=== PATIENT | male | born 1980 | race Two or more races ===

== ENCOUNTER 2023-02-28 09:23 | Inpatient (IN) | payer MEDICAID ==
[~2023-02-28] VITALS: Ht 162.6 cm; Wt 80.0 kg
[2023-02-28] VITALS (7 sets, daily range): BP systolic 116–120; BP diastolic 68–69; PULSE 80–91; RESP 14–20; TEMP 98–98.5; O2SAT 94–100
[2023-02-28 10:05] LABS: Basophils # (auto) 0 10 ^3/uL (0-0.2); Basophils % (auto) 0.2 % (0.0-2.0); Eosinophils # (auto) 0 10 ^3/uL (0-0.8); Eosinophils % (auto) 0.2 % (0.0-7.0); Hematocrit 44.4 % (41.0-53.0); Hemoglobin 15.2 g/dL (13.5-17.5); Lymphocytes # (auto) 1.8 10 ^3/uL (0.4-5.4); Lymphocytes % (auto) 12.9 % (10.0-50.0); Mean Corpuscular Hemoglobin 30.1 pg (28.0-32.0); Mean Corpuscular Hgb Conc. 34.2 g/dL (32.0-36.0); Mean Corpuscular Volume 87.8 fL (80.0-100.0); Monocytes # (auto) 1.2 10 ^3/uL (0-1.3); Neutrophils # (auto) 10.5 10 ^3/uL (1.6-8.6); Neutrophils % (auto) 77.7 % (37.0-80.0); Red Blood Cells 5.06 10^6/uL (4.5-5.90); Red Cell Distribution Width 13.5 % (11.8-14.3); White Blood Cell 13.6 10^3/uL (4.4-10.8)
[2023-02-28 10:11] LABS: Urine Bacteria NONE SEEN /hpf (None Seen); Urine Blood Negative /uL (Negative); Urine Clarity Clear (Clear); Urine Color Yellow (Yellow); Urine Mucus FEW (None Seen); Urine Protein, UAD TRACE (Negative); Urine Specific Gravity 1.025 (1.001-1.035); Urine Urobilinogen Normal (Negative); Urine WBC 1 /hpf (0 - 3); Urine pH 5.5 (5.0-8.0)
[2023-02-28 10:18] LABS: Alanine Aminotransferase 97 U/L (7-40); Albumin 4.8 g/dL (3.2-4.8); Alkaline Phosphatase 110 U/L (46-116); Anion Gap 6 (5-15); Aspartate Aminotransferase 47 U/L (13-40); BUN/Creatinine Ratio 11.1 (10.0-20.0); Blood Urea Nitrogen 9 mg/dL (9-23); Calcium 9.2 mg/dL (8.7-10.4); Carbon Dioxide 25 mmol/L (20-30); Chloride 104 mmol/L (98-107); Glucose 142 mg/dL (74-106); Lipase 44 U/L (12-53); Sodium 135 mmol/L (136-145)
[2023-02-28 10:19] LABS: Bilirubin, Total 0.7 mg/dL (0.2-1.0); Total Protein 7.5 g/dL (5.7-8.2)
[2023-02-28] MEDS ORDERED: metroNIDAZOLE 500MG/100ML 100 ML IV ONE (10:45)
[2023-02-28] MEDS ORDERED: cefTRIAXone 1GM/50ML D5W 50 ML IV ONE (10:45)
[2023-02-28 11:21] LABS: INR 1.04 (0.9-1.15); Partial Thromboplastin Time 31.4 SEC (24.5-34.5); Prothrombin Time 10.9 sec (9.3-11.8)
[2023-02-28] MEDS ORDERED: HYDROmorphone HCL 2 MG/ML VL/or syr IV PRN ×3 (11:45→14:45)
[2023-02-28] MEDS ORDERED: MORPHINE SULFATE INJ 2 MG/ml SYRG IV PRN (11:45)
[2023-02-28] MEDS ORDERED: METOCLOPRAMIDE HCL 5MG/ml INJ 2ml VIAL IV PRN (11:45)
[2023-02-28] MEDS ORDERED: fentaNYL CITRATE 100 MCG/2 ML VL ONE (11:48)
[2023-02-28] MEDS ORDERED: ONDANSETRON HCL 4 MG/2 ML VIAL ONE (11:49)
[2023-02-28] MEDS ORDERED: SODIUM CHLORIDE LOCK 10 ML ONE (11:49)
[2023-02-28] MEDS ORDERED: DexAMETHasone SOD PHOS 10MG/1ML VIAL INJ ONE (11:49)
[2023-02-28] MEDS ORDERED: MEPERIDINE HCL (50 MG/ML) 1 ML VIAL ONE (11:49)
[2023-02-28] MEDS ORDERED: PROPOFOL 10 MG/ML 20 ML IV ONE (11:49)
[2023-02-28] MEDS ORDERED: ROCURONIUM 10MG/ML 10ML VIAL IV ONE (11:49)
[2023-02-28] MEDS ORDERED: GLYCOPYRROLATE 0.2 MG/ML 1ML VIAL ONE (11:49)
[2023-02-28] MEDS ORDERED: NEOSTIGMINE 1 MG/ML INJ (10mg/10ML VIAL) ONE (11:49)
[2023-02-28] MEDS ORDERED: MIDAZOLAM HCL 2MG/2ML 2ml VIAL (1mg/ml) ONE (11:49)
[2023-02-28] MEDS ORDERED: LIDOCAINE 1% (LOCAL ANESTH.) PF 5ml SDV ONE (11:51)
[2023-02-28] MEDS ORDERED: LIDOCAINE 1% HCL (LOCAL ANESTH.) INJ 20ML MDV ONE (12:24)
[2023-02-28] MEDS ORDERED: LIDOCAINE 2% JELLY 11ml (GLYDO) ONE (12:36)
[2023-02-28] MEDS ORDERED: SUGAMMADEX 200mg/2ml Vial (100MG/ML) IV ONE (13:48)
[2023-02-28] MEDS ORDERED: DEXTROSE (50%) 50ML SYRG IV PRN (14:45)
[2023-02-28] MEDS ORDERED: DOCUSATE SOD 100 MG CAP PO PRN (14:45)
[2023-02-28] MEDS: SODIUM CHLORIDE 0.9% 1,000 ML IV SCH ×2 (16:20→23:05)
[2023-02-28] MEDS: ACCU-CHEK COMFORT CURVE STRIP VI SCH (18:34)
[2023-02-28] MEDS: PIPERACILLIN-TAZOB 3.375GM 100 ML IV SCH (18:34)
[2023-02-28] MEDS: InsuLIN REG 1unit/0.01ml Soln (100units/ml) SC SCH (18:35)
[2023-03-01] VITALS (7 sets, daily range): BP systolic 96–144; BP diastolic 51–85; PULSE 68–81; RESP 16–20; TEMP 97.3–98.6; O2SAT 93–98
[2023-03-01] MEDS: PIPERACILLIN-TAZOB 3.375GM 100 ML IV SCH ×5 (00:13→23:32)
[2023-03-01] MEDS: ACCU-CHEK COMFORT CURVE STRIP VI SCH ×5 (00:15→23:31)
[2023-03-01] MEDS: InsuLIN REG 1unit/0.01ml Soln (100units/ml) SC SCH ×5 (05:33→23:33)
[2023-03-01 06:08] LABS: Alanine Aminotransferase 72 U/L (7-40); Albumin 4.6 g/dL (3.2-4.8); Alkaline Phosphatase 87 U/L (46-116); Anion Gap 8 (5-15); Aspartate Aminotransferase 31 U/L (13-40); BUN/Creatinine Ratio 7.4 (10.0-20.0); Blood Urea Nitrogen 6 mg/dL (9-23); Calcium 9.2 mg/dL (8.5-10.1); Carbon Dioxide 24 mmol/L (20-30); Chloride 106 mmol/L (98-107); Glucose 120 mg/dL (74-106); Potassium 4.4 mmol/L (3.5-5.1); Sodium 138 mmol/L (136-145)
[2023-03-01 06:09] LABS: Total Protein 7.6 g/dL (5.7-8.2)
[2023-03-01 06:10] LABS: Basophils # (auto) 0 10 ^3/uL (0-0.2); Basophils % (auto) 0.3 % (0.0-2.0); Eosinophils # (auto) 0 10 ^3/uL (0-0.8); Hematocrit 44.9 % (41.0-53.0); Hemoglobin 14.9 g/dL (13.5-17.5); Lymphocytes # (auto) 1.2 10 ^3/uL (0.4-5.4); Lymphocytes % (auto) 9.3 % (10.0-50.0); Mean Corpuscular Hemoglobin 29.8 pg (28.0-32.0); Mean Corpuscular Hgb Conc. 33.3 g/dL (32.0-36.0); Mean Corpuscular Volume 89.4 fL (80.0-100.0); Monocytes # (auto) 0.8 10 ^3/uL (0-1.3); Neutrophils % (auto) 84.4 % (37.0-80.0); Nucleated Red Blood Cells % 0.1 %; Red Blood Cells 5.02 10^6/uL (4.5-5.90); Red Cell Distribution Width 13.8 % (11.8-14.3); White Blood Cell 13.1 10^3/uL (4.4-10.8)
[2023-03-01] MEDS: SODIUM CHLORIDE 0.9% 1,000 ML IV SCH ×2 (07:25→16:34)
[2023-03-01] MEDS: ONDANSETRON HCL 4 MG/2 ML VIAL IV PRN (15:41)
[2023-03-01] MEDS: MORPHINE SULFATE INJ 2 MG/ml SYRG IV PRN (15:42)
[2023-03-02] MEDS: SODIUM CHLORIDE 0.9% 1,000 ML IV SCH ×4 (00:07→23:46)
[2023-03-02 05:00] VITALS: BP 122/78; PULSE 57; RESP 16; TEMP 97.5; O2SAT 97
[2023-03-02] MEDS: InsuLIN REG 1unit/0.01ml Soln (100units/ml) SC SCH ×4 (05:30→23:21)
[2023-03-02] MEDS: ACCU-CHEK COMFORT CURVE STRIP VI SCH ×4 (05:30→23:21)
[2023-03-02] MEDS: PIPERACILLIN-TAZOB 3.375GM 100 ML IV SCH ×4 (05:31→23:21)
[2023-03-02 08:00] VITALS: BP 130/76; PULSE 63; RESP 16; TEMP 98.4; O2SAT 98
[2023-03-02] MEDS: ONDANSETRON HCL 4 MG/2 ML VIAL IV PRN (09:15)
[2023-03-02] MEDS: MORPHINE SULFATE INJ 2 MG/ml SYRG IV PRN (09:16)
[2023-03-02 13:00] VITALS: BP 121/71; PULSE 65; RESP 20; TEMP 98.5; O2SAT 97
[2023-03-02 15:56] LABS: Basophils # (auto) 0 10 ^3/uL (0-0.2); Basophils % (auto) 0.2 % (0.0-2.0); Eosinophils # (auto) 0 10 ^3/uL (0-0.8); Eosinophils % (auto) 0.2 % (0.0-7.0); Hematocrit 46.5 % (41.0-53.0); Hemoglobin 15.7 g/dL (13.5-17.5); Lymphocytes # (auto) 1.8 10 ^3/uL (0.4-5.4); Lymphocytes % (auto) 16.1 % (10.0-50.0); Mean Corpuscular Hemoglobin 30.1 pg (28.0-32.0); Mean Corpuscular Hgb Conc. 33.8 g/dL (32.0-36.0); Monocytes # (auto) 0.7 10 ^3/uL (0-1.3); Monocytes % (auto) 6.6 % (0.0-12.0); Neutrophils # (auto) 8.4 10 ^3/uL (1.6-8.6); Neutrophils % (auto) 76.9 % (37.0-80.0); Nucleated Red Blood Cells % 0.1 %; Red Blood Cells 5.22 10^6/uL (4.5-5.90); Red Cell Distribution Width 13.6 % (11.8-14.3); White Blood Cell 10.9 10^3/uL (4.4-10.8)
[2023-03-02 17:00] VITALS: BP 127/85; PULSE 41; RESP 20; TEMP 98.3; O2SAT 93
[2023-03-02] MEDS ORDERED: HYDROcodone-ACET 5/325MG TAB PO PRN (19:15)
[2023-03-02 19:30] VITALS: O2SAT 98
[2023-03-02 22:00] VITALS: BP 124/86; PULSE 86; RESP 16; TEMP 98.1; O2SAT 95
[2023-03-03 05:00] VITALS: BP 108/65; PULSE 72; RESP 16; TEMP 97.9; O2SAT 95
[2023-03-03] MEDS: ACCU-CHEK COMFORT CURVE STRIP VI SCH ×3 (05:20→17:42)
[2023-03-03] MEDS: PIPERACILLIN-TAZOB 3.375GM 100 ML IV SCH ×3 (05:20→17:48)
[2023-03-03] MEDS: InsuLIN REG 1unit/0.01ml Soln (100units/ml) SC SCH ×3 (05:26→17:42)
[2023-03-03 08:00] VITALS: BP 116/68; PULSE 68; RESP 17; TEMP 98.2; O2SAT 97
[2023-03-03] MEDS: SODIUM CHLORIDE 0.9% 1,000 ML IV SCH ×2 (09:25→17:41)
[2023-03-03 10:58] VITALS: BP 116/68; PULSE 68; RESP 18; TEMP 98.2; O2SAT 97
[2023-03-03 20:00] VITALS: O2SAT 98
[2023-03-03 22:00] VITALS: BP 116/66; PULSE 71; RESP 16; TEMP 98.2; O2SAT 95
[2023-03-04] MEDS: SODIUM CHLORIDE 0.9% 1,000 ML IV SCH ×2 (00:03→10:25)
[2023-03-04 05:00] VITALS: BP 103/72; PULSE 61; RESP 16; TEMP 97.7; O2SAT 97
[2023-03-04] MEDS: InsuLIN REG 1unit/0.01ml Soln (100units/ml) SC SCH ×3 (05:00→11:18)
[2023-03-04] MEDS: ACCU-CHEK COMFORT CURVE STRIP VI SCH ×3 (05:00→11:18)
[2023-03-04] MEDS: PIPERACILLIN-TAZOB 3.375GM 100 ML IV SCH ×3 (05:00→11:16)
[2023-03-04 08:00] VITALS: BP 112/71; PULSE 65; RESP 17; TEMP 98.1; O2SAT 96
[2023-03-04 08:38] VITALS: BP 112/71; PULSE 65; RESP 20; TEMP 98.1; O2SAT 96
[2023-03-04 12:37] VITALS: BP 120/66; PULSE 70; RESP 20; TEMP 98.1; O2SAT 95
[2023-03-04] MEDS ORDERED: METR-344 PO (12:49)
[2023-03-04 13:29] VITALS: BP 120/66; PULSE 70; RESP 20; TEMP 98.1; O2SAT 95
== END 2023-03-04 17:18 | disposition home or self-care (01) | DRG 710 ==
LOC: ER 09:23 → OVERFLOW 14:45 → WEST WING 15:27
PROVIDERS: ADMIT Nurse Practitioner Family; ATTEND Nurse Practitioner Acute Care
PROC: 0DTJ4ZZ Resection of Appendix, Percutaneous Endoscopic Approach (ICD-10-PCS; principal; 2023-02-28 12:57)
DX: A41.9 Sepsis, unspecified organism (principal); K76.0 Fatty (change of) liver, not elsewhere classified; K35.80 Unspecified acute appendicitis; K57.30 Diverticulosis of large intestine without perforation or abscess without bleeding; E66.9 Obesity, unspecified; Z68.30 Body mass index [BMI] 30.0-30.9, adult
CPT/HCPCS: 36415; 71045; 74176; 80053; 81001; 82962; 83605; 83690; 84132; 84484; 85025; 85610; 85730; 87040; 96365; 96368; 99291; G0378; J0696; J1100; J1815; J2001; J2250; J2405; J2543; J2704; J3490